=== PATIENT | female | born 2000 | race Two or more races ===

== ENCOUNTER 2024-11-20 12:29 | Inpatient (IN) | payer MEDICAID, SELFPAY ==
[2024-11-20] VITALS (14 sets, daily range): BP systolic 96–142; BP diastolic 55–88; PULSE 70–121; RESP 18–99; TEMP 36.6–36.7; O2SAT 97–99; BMI 40.8
[2024-11-20] MEDS: CITRIC ACID/SODIUM CITR 15 ML UDC (BICITRA) 30 ML PO (13:25)
[2024-11-20] MEDS: ceFAZolin/D5W 2 GM IV 2 GM/100 ML BAG IV (13:26)
[2024-11-20] MEDS: FAMOTIDINE INJ 10 MG/ML VIAL 2 ML 20 MG IV (13:26)
[2024-11-20 13:30] LABS: Basophils # (Auto) 0.0 Thou/mm3 (0.0-0.2); Basophils % (Auto) 0 % (0-2.5); Eosinophils # (Auto) 0.0 Thou/mm3 (0.0-0.5); Eosinophils % (Auto) 0 % (0-10); Hematocrit 30.2 % (36.0-46.0); Hemoglobin 9.9 g/dL (12.0-16.0); Immature Granulocytes Auto 0.03 Thou/mm3 (0.00-0.00); Lymphocytes # (Auto) 1.0 Thou/mm3 (1.0-4.8); Lymphocytes % (Auto) 14 % (10-50); Mean Corpuscular HGB Conc 32.8 g/dl (31.0-37.0); Mean Corpuscular Hemoglobin 24.6 pg (25.0-35.0); Mean Corpuscular Volume 75 fL (80-100); Monocytes # (Auto) 0.4 Thou/mm3 (0.0-0.8); Monocytes % (Auto) 6 % (0-12); Neutrophils # (Auto) 5.8 Thou/mm3 (1.8-7.7); Neutrophils % (Auto) 79 % (37-80); Nucleated Red Blood Cell # 0.00 Thou/mm3 (0.00-0.00); Nucleated Red Blood Cell % 0 /100 WBC (0); Platelet Count 216 Thou/mm3 (140-440); RDW Standard Deviation 39.0 fL (36.4-46.3); Red Blood Count 4.02 Miln/mm3 (4.00-5.20); White Blood Count 7.4 Thou/mm3 (3.6-11.0)
[2024-11-20] MEDS: RINGERS LACTATED 1000 ML 1,000 ML 100 ML IV (13:30)
[2024-11-20 14:12] LABS: Syphilis Nonreactive (Nonreactive)
--- NOTE | 2024-11-20 14:52 | PD.LDHP ---
Documentation for date of: 11/20/24 OB Labor/Induct. HPI History of Present Illness Chief complaint: Active labor, previous : 2 Para: 1 Term pregnancies: 1 pregnancies: 0 Living children: 1 History of Abortions: Spontaneous and Elective: 0 History of Vaginal deliveries: 0 History of sections: Yes History of : No KHAI: 12/01/24 Gestational Age (weeks): 38 Gestational Age (days): 1 History of present illness: Patient is a 23-year-old -0-0-1 at 38-3/7 weeks estimated gestational age dates consistent with first trimester ultrasound with all care uncomplicated with Dr Guerrier. She had a history of a x 1 in 10/08. She states her baby is 14 months old. She she presented in active labor to OB triage. She was 3 to 4 cm dilated on presentation please started lab we sent down labs start an IV and she rapidly progressed to 6 cm dilatation. She was consented for repeat low-transverse section in labor. She is not a candidate due to the fact that she just had a 14 months prior. Her EDC is 12/01/2024 History of Present Dating criteria: LMP confirmed by 1st trimester US Adequate Care: Yes Ultrasounds: normal mid trimester US Obstetrical complications: none Medical complications: none Labs Maternal Blood Type: A Pos Labs: Positive: Rubella Titre, Negative: RPR, Hepatitis B, HIV, Chlamydia and Gonorrhea and Unknown: Herpes Type 1, Herpes Type 2, Group Beta Strep and Covid-19 Review of Systems Review of Systems Narrative Review of Systems: Patient reports painful uterine contractions. Good movement. No loss of fluids. No vaginal bleeding. Past Medical History Surgical History SURGICAL: Positive Section Meds Home Medications and Allergies Home Medications ?Medication ?Instructions ?Recorded ?Confirmed ?Type vit no.95-ferrous 1 tab PO QDAY 09/25/23 10/02/23 History fumarate 28 mg-folic acid 800 mcg tablet () Allergies Allergy/AdvReac Type Severity Reaction Status Date / Time No Known Allergies Allergy Verified 10/02/23 07:04 OB Exam Physical Exam Vital signs: Temp Pulse Resp BP 98.1 F 121 H 18 142/88 H 11/20/24 14:23 11/20/24 14:23 11/20/24 14:23 11/20/24 14:23 Narrative: Patient is breathing through her contractions and uncomfortable. She is answering questions appropriately. Abdomen is soft, her fundus is firm and approximately 40 weeks. EFW 8 pounds. Routine Abdominal Exam Abdominal: Present soft and surgical scars (Pfannenstiel scar well-healed) Detailed Labor and Delivery Exam Dilation (cm): 3-4 Effacement (%): 80 Cervix position: mid station: -1 Consistency: soft Presentation: Vertex Membranes: intact monitor accelerations: 15x15 monitor decelerations: None grooming assistant variability: Moderate (11-25) Contraction frequency (min): Every 3 to 4 minutes Tachysystole: No Contraction intensity: Strong OB Results Labs 11/20/24 13:00 Labs: Short CBC 11/20/24 Range/Units 13:00 WBC 7.4 (3.6-11.0) Thou/mm3 Hgb 9.9 L (12.0-16.0) g/dL Hct 30.2 L (36.0-46.0) % Plt Count 216 (140-440) Thou/mm3 OB Assessment & Plan Assessment and Plan (1) Supervision of high risk in third trimester: Status: Acute (2) Previous section: Status: Acute Assessment and plan: The patient is in active labor and has progressed from 3 to 4 to 6 cm in triage. She is consented for a repeat low-transverse section. The risks of the procedure were discussed with the patient including the risk of bleeding, infection, blood transfusion, damage to bowel, bladder, blood vessels and other organs ,prolonged hospital stay and further surgery should any of the above occur. All questions were answered and all consents were signed. We will proceed with repeat low-transverse section in labor at this time.
--- NOTE | 2024-11-20 15:56 | PD.GYNPROC ---
Operative Note - DYE WORKER Procedure Date of procedure: 11/20/24 Procedure Performed: Repeat low-transverse section Indication: The patient is a 23-year-old -0-0-1 at 38-5/7 weeks with all care uncomplicated with Dr Guerrier. She has a history of a x one 14 months ago. The patient presented to triage reporting painful uterine contractions. She was 3 to 4 cm dilated. Within an hour of admission to triage, she was already 6 cm dilated. She was consented for repeat low-transverse section. EDC 12/01/2024 Pre-Op diagnosis: 1. IUP at 38-5/7 weeks 2. Active labor, 6 cm dilated 3. Previous 4. Maternal BMI of 41 Post-Op diagnosis: Same Anesthesia type: Spinal Procedure description: After obtaining informed consent, the patient was brought back to the operating room and spinal anesthesia was administered. She was then prepped and draped in the dorsal supine position with a leftward tilt in a normal sterile fashion. A Christiansen catheter was inserted into the patient's bladder. The patient was given 2 g of Ancef by anesthesia. A Pfannenstiel skin incision was made through the patient's prior scar and the prior scar removed. The incision was carried down to the underlying fascia. The fascia was incised in the midline and the fascial incision extended laterally using Hendricks scissors. The superior aspect of the fascia was grasped with Jerson clamps, and the underlying rectus muscles were dissected off using blunt and sharp dissection. This was repeated in the inferior aspect the incision. The rectus muscles were in the midline, and in the peritoneum entered sharply with a scalpel. This was extended superiorly and inferiorly with good visualization of the bladder using blunt dissection with the surgeon's fingers. The bladder blade was inserted and the uterus was incised in a low transverse fashion using a scalpel above the bladder reflection. The uterine incision was extended laterally using blunt dissection with the surgeon's fingers. The bag of escalera were ruptured, and clear fluid was noted. The bladder blade was removed, and the was delivered atraumatically. The cord was clamped and cut. The was handed off to the waiting pediatric staff. Cord blood was sent and cord gases were held. The placenta was then manually removed, and handed off the operating field. The uterus was exteriorized and cleared of all clots and debris. The uterine incision was repaired with 0 Monocryl in a running locked fashion. A couple of extra sutures were placed in her right lower quadrant for an extension. Excellent hemostasis was noted. The uterus was returned to the patient's abdominal cavity and copious irrigation carried out with warm normal saline. The uterine incision was reexamined several times and noted to be hemostatic. Some mild oozing was noted and Abdullahi hemostatic powder was called for. Excellent hemostasis was noted. After ensuring the rectus muscles were hemostatic these were reapproximated in a running fashion using 0 Monocryl. The fascia was closed with 0 Vicryl in a running fashion. The subcutaneous tissues were irrigated and found to hemostatic. These were reapproximated using running suture of 3-0 plain. The skin was closed with a subcuticular suture of 4-0 Monocryl. Of note the patient had a large skin tag approximately 1 x 1 cm in her left lower quadrant below her incision. She desired this to be removed and did verbally consent for this. This large skin tag was picked up with pickups and excised using a scalpel. The excision site was closed using one interrupted suture of 4-0 Monocryl. The patient tolerated the procedure well, sponge, lap, needle, and instrument counts were correct x 2. The patient went to the recovery area awake and in stable condition. Of note the baby was with mom in recovery in stable condition. Fluids: crystalloid Fluid amount (mL): 1,400 Urine output (mL): 75 Specimen: none Implants: None Estimated blood loss (ml): 600 Findings: Liveborn female in the OA presentation with no nuchal cord or meconium. Apgars 9 and 9. Weight was 7 pounds 13 ounces. The placenta was complete, spontaneous, and grossly normal. Tubes, uterus and ovaries appeared grossly normal. Of note there was very little scar tissue present in the patient's abdomen. Complications: none Surgical staff Operation Date: 11/20/24 13:30 Case Staff PRINCIPAL EXAMINER: Elias العراقي RNfast food services manager: Dorie Cid Diagnosis Discharge Diagnosis (1) Previous section: Status: Acute Problem details: For repeat low-transverse section (2) Supervision of high risk in third trimester: Status: Acute (3) Morbid obesity with BMI of 40.0-44.9, adult: Status: Acute Problem details: Consider Lovenox Problem List Completed Was Problem List Reviewed/Reconciled?: Yes
--- NOTE | 2024-11-20 15:59 | OBDSUM_ITS ---
Data (Campos) Data Hx Section: Yes Maternal Blood Type: A Pos Rubella Titre: Positive RPR: Non-reactive Labs: Negative: RPR, Hepatitis B, HIV, Chlamydia, Gonorrhea and Group Beta Strep and Unknown: Herpes Type 1 and Herpes Type 2 : 2 Term: 1 : 0 Livin Abortions: Spontaneous & Theraputic: 0 Delivery Data (Campos) Labor Data Initiation of labor: Spontaneous Induction/Augmentation Agent: None ROM date: 11/20/24 ROM time: 14:03 Amniotic membrane rupture type: Artificial Amniotic fluid description: Clear Delivery Data EDC: 12/01/24 EDC calculated by:: LMP/early US confirmation Date of arrival to unit: 11/20/24 Onset of labor date: 11/20/24 Onset of labor time: 13:30 Complete dilation date: 11/20/24 Complete dilation time: 14:03 delivery date: 11/20/24 delivery time: 14:04 Gestational age (weeks): 38 Gestational age (days): 3 Placenta delivery date: 11/20/24 Placenta delivery time: 14:05 Stage 1 total time: Labor - Stage 1 Duration 33 minutes Delivered by: Poornima Juarez ([facility]) Delivery nurse: Kapil Allan nurse: Mariama Krishnamurthy Control Technician at delivery: No Support person(s) at delivery: Mother of pt Other staff at delivery: Alia Alvarado D. Elton DIAMOND GRADER, PATRICIO LLAMASA, ARREA1, SMOTC1 Delivery Method Delivery method: Low Transverse Presentation: Vertex position: OA Anesthesia Type Anesthesia Type: Spinal Anesthesia type: Spinal Delivery Room Medications Delivery room medications given: TXA Delivery room medications: Pitocin 20 u IV Placenta Placenta delivery description: Spontaneous Cord blood sent to lab: Yes cord blood collection: Cord Blood Type Episiotomy Episiotomy description: None EBL Estimated blood loss (ml): 600 Umbilical Cord cord description: 3 Vessels Additional Procedures Please see op report for further details. Complications Complications: None [place] Data (Campos) [place] Data order: 1 Mine[place]'s gender: Female weight (gms): 3540 g Weight (pounds): 7 lbs and 12.9 ozs 1 minute: 9 5 minutes: 9 Additional Comments Additional comments: Please see op report for further details
[2024-11-20] MEDS: KETOROLAC INJ 30 MG/ML VIAL IVP (17:13)
[2024-11-20] MEDS: OXYTOCIN in NS 20 units 20 UNIT/1,000 ML BAG 125 UNIT IV (20:32)
[2024-11-20] MEDS: IBUPROFEN TAB 400 MG TABLET 800 MG PO (23:24)
[2024-11-21] VITALS (16 sets, daily range): BP systolic 106–127; BP diastolic 69–90; PULSE 100–142; RESP 22–50; TEMP 36.4–37.8; O2SAT 93–97
[2024-11-21] MEDS: RINGERS LACTATED 1000 ML 1,000 ML 999 ML IV (00:45)
--- NOTE | 2024-11-21 00:48 | XR_ITS ---
Examination: AP chest single view Technique AP portable semiupright chest single view Date and time: November 21, 2024, 0120 hours Comparison September 11, 2012 INDICATIONS: Tachypnea and tachycardia today. FINDINGS: Reduced inspiratory effort which accentuates the cardiac contour. No aspiration pneumonia, no pulmonary edema IMPRESSION: Poor inspiratory effort chest x-ray
--- NOTE | 2024-11-21 01:16 | ESPR_ITS ---
Subjective Subjective Interval history: Patient is a 23-year-old G2 now P2002 status post primary 11/20/2024 at approximately 1400. I was called to bedside for low urine output. Patient is also tachycardic with pulse of 115. She is reporting bilateral shoulder pain. Her predelivery hemoglobin was 9.9. Her blood pressure is stable at 112/70. Pulse is 81. This point I ordered a bolus of 1 L LR for decreased urine output, a second IV line to be placed, 2 units PRBC on hold and a stat CBC. I also ordered a stat chest x-ray. Patient does not report chest pain or chest pain. At bedside abdomen is soft fundus is firm her lochia is moderate. Her incision is dressed and dry. Exam Vital Signs Temp Pulse Resp BP Pulse Ox O2 Del Method 97.9 F 81 20 112/70 97 Room Air 11/20/24 20:41 11/20/24 20:41 11/20/24 20:41 11/20/24 20:41 11/20/24 20:41 11/20/24 20:41 Narrative Exam Current pulse 114 current blood pressure 112/70 current pulse ox 96% on room air Objective Labs 11/20/24 13:00 Labs: Laboratory Results - last 24 hr 11/20/24 13:00 WBC 7.4 RBC 4.02 Hgb 9.9 L Hct 30.2 L MCV 75 L MCH 24.6 L MCHC 32.8 RDW Std Deviation 39.0 Plt Count 216 Neut % (Auto) 79 Lymph % (Auto) 14 [place] % (Auto) 6 Eos % (Auto) 0 Baso % (Auto) 0 Neut # (Auto) 5.8 Lymph # (Auto) 1.0 [place] # (Auto) 0.4 Eos # (Auto) 0.0 Baso # (Auto) 0.0 Immature Gran # (Auto) 0.03 H Absolute Nucleated RBC 0.00 Immature Gran % 0 Nucleated RBC % 0 Syphilis Serology Nonreactive Blood Type A Positive Antibody Screen NEGATIVE Blood Bank Wristband ID Yes Assessment & Plan Problem List (1) Previous section: Problem details: For repeat low-transverse section Status: Acute (2) Supervision of high risk in third trimester: Status: Acute (3) Morbid obesity with BMI of 40.0-44.9, adult: Problem details: Consider Lovenox Status: Acute Assessment Comment Assessment comment: Patient with decreased urine output elevated pulse. EBL at surgery approximately 600 cc. Stat CBC second IV line chest x-ray and fluid bolus now. Time Spent With Patient Time: Total time spent is greater than 50% in coordination of care (as documented) at patient's floor/unit and/or counseling patient: Time with patient: less than 15 minutes
[2024-11-21 01:19] LABS: Basophils # (Auto) 0.0 Thou/mm3 (0.0-0.2); Basophils % (Auto) 0 % (0-2.5); Eosinophils # (Auto) 0.0 Thou/mm3 (0.0-0.5); Eosinophils % (Auto) 0 % (0-10); Hematocrit 27.4 % (36.0-46.0); Hemoglobin 9.0 g/dL (12.0-16.0); Immature Granulocytes Auto 0.02 Thou/mm3 (0.00-0.00); Lymphocytes # (Auto) 0.4 Thou/mm3 (1.0-4.8); Lymphocytes % (Auto) 6 % (10-50); Mean Corpuscular HGB Conc 32.8 g/dl (31.0-37.0); Mean Corpuscular Hemoglobin 24.8 pg (25.0-35.0); Mean Corpuscular Volume 76 fL (80-100); Monocytes # (Auto) 0.3 Thou/mm3 (0.0-0.8); Monocytes % (Auto) 5 % (0-12); Neutrophils # (Auto) 6.8 Thou/mm3 (1.8-7.7); Neutrophils % (Auto) 89 % (37-80); Nucleated Red Blood Cell # 0.00 Thou/mm3 (0.00-0.00); Nucleated Red Blood Cell % 0 /100 WBC (0); Platelet Count 199 Thou/mm3 (140-440); RDW Standard Deviation 39.7 fL (36.4-46.3); Red Blood Count 3.63 Miln/mm3 (4.00-5.20); White Blood Count 7.6 Thou/mm3 (3.6-11.0)
--- NOTE | 2024-11-21 01:54 | PD.LDPPPRG ---
Subjective Subjective Interval history: Patient is pale. He hemoglobin 3 was 9.9. Post it is 9. Her pulse is 115. At this point I recommended blood transfusion of 2 units packed red blood cells and patient agrees. Urine output is still poor after 750 cc of LR. She states her shoulder pain is better. Exam Vital Signs Temp Pulse Resp BP Pulse Ox O2 Del Method 97.5 F 103 H 25 H 114/74 97 Room Air 11/21/24 00:00 11/21/24 00:25 11/21/24 00:25 11/21/24 00:00 11/21/24 00:25 11/21/24 00:25 Narrative Exam Patient is pale but alert and oriented answers questions appropriately. Fundus is firm. On pressing on the fundus it is at her umbilicus and she has minimal lochia. SCD boots are in place. No edema or erythema. Objective Labs 11/21/24 01:10 Labs: Laboratory Results - last 24 hr 11/20/24 11/21/24 13:00 01:10 WBC 7.4 7.6 RBC 4.02 3.63 L Hgb 9.9 L 9.0 L Hct 30.2 L 27.4 L MCV 75 L 76 L MCH 24.6 L 24.8 L MCHC 32.8 32.8 RDW Std Deviation 39.0 39.7 Plt Count 216 199 Neut % (Auto) 79 89 H Lymph % (Auto) 14 6 L [place] % (Auto) 6 5 Eos % (Auto) 0 0 Baso % (Auto) 0 0 Neut # (Auto) 5.8 6.8 Lymph # (Auto) 1.0 0.4 L [place] # (Auto) 0.4 0.3 Eos # (Auto) 0.0 0.0 Baso # (Auto) 0.0 0.0 Immature Gran # (Auto) 0.03 H 0.02 H Absolute Nucleated RBC 0.00 0.00 Immature Gran % 0 0 Nucleated RBC % 0 0 Syphilis Serology Nonreactive Blood Type A Positive Antibody Screen NEGATIVE Blood Bank Wristband ID Yes Assessment & Plan Problem List (1) Previous section: Problem details: For repeat low-transverse section Status: Acute (2) Supervision of high risk in third trimester: Status: Acute (3) Morbid obesity with BMI of 40.0-44.9, adult: Problem details: Consider Lovenox Status: Acute Plan Comment Plan Comment: Patient appears pale with poor urine output and elevated pulse. At this time we will go ahead and transfuse 2 units packed red blood cells. Patient consented for the transfusion. Time Spent With Patient Time: Total time spent is greater than 50% in coordination of care (as documented) at patient's floor/unit and/or counseling patient: Time with patient: less than 15 minutes
--- NOTE | 2024-11-21 04:01 | EKG_ITS ---
[facility] Test Date: 2024-11-21 Pat Name: KAROL PRYOR [facility] Gender[facility] Slip Sheeter: SOFYA : 2000 Requested By: Poornima Juarez ([facility]) Khadar Order Number: [id number] Reading MD: Poornima Juarez ([facility]) M Measurements Intervals [place] Rate: 130 P: 54 [place]: 160 QRS: 1 QRSD: 85 T: 21 QT: 292 QTc: 430 Interpretive Statements SINUS TACHYCARDIA INDETERMINATE AXIS ABNORMAL RHYTHM ECG No previous ECG available for comparison /store/S0/[id number].pdf
[2024-11-21] MEDS: ACETAMINOPHEN 325 MG TABLET 650 MG PO (04:19)
[2024-11-21] MEDS: SIMETHICONE 80 MG CHEW PO (04:20)
[2024-11-21] MEDS: RINGERS LACTATED 1000 ML 1,000 ML 100 ML IV (05:03)
[2024-11-21 05:20] LABS: Collection Type, Urine Catheter; Squamous Epithelial Cell,Urine 0 /hpf (0-5)
[2024-11-21 05:21] LABS: Lactate (Lactic Acid) 1.5 mMol/L (0.4-2.0)
[2024-11-21 05:23] LABS: Basophils # (Auto) 0.0 Thou/mm3 (0.0-0.2); Basophils % (Auto) 0 % (0-2.5); Eosinophils # (Auto) 0.0 Thou/mm3 (0.0-0.5); Eosinophils % (Auto) 0 % (0-10); Hematocrit 27.6 % (36.0-46.0); Hemoglobin 9.1 g/dL (12.0-16.0); Immature Granulocytes Auto 0.02 Thou/mm3 (0.00-0.00); Lymphocytes # (Auto) 0.4 Thou/mm3 (1.0-4.8); Lymphocytes % (Auto) 4 % (10-50); Mean Corpuscular HGB Conc 33.0 g/dl (31.0-37.0); Mean Corpuscular Hemoglobin 25.2 pg (25.0-35.0); Mean Corpuscular Volume 77 fL (80-100); Monocytes # (Auto) 0.3 Thou/mm3 (0.0-0.8); Monocytes % (Auto) 3 % (0-12); Neutrophils # (Auto) 8.4 Thou/mm3 (1.8-7.7); Neutrophils % (Auto) 92 % (37-80); Nucleated Red Blood Cell # 0.00 Thou/mm3 (0.00-0.00); Nucleated Red Blood Cell % 0 /100 WBC (0); Platelet Count 172 Thou/mm3 (140-440); RDW Standard Deviation 41.5 fL (36.4-46.3); Red Blood Count 3.61 Miln/mm3 (4.00-5.20); White Blood Count 9.1 Thou/mm3 (3.6-11.0)
[2024-11-21 05:27] LABS: Amorphous Crystals,Urine Present (Absent); Bacteria,Urine 1+; Bilirubin,Urine Negative (Negative); Blood,Urine 2+ (Negative); Clarity,Urine Turbid (Clear/Hazy); Color,Urine Orange (Lt Yel-Yel); Glucose, Urine Trace (Negative); Ketones,Urine 2+ (Negative); Leukocyte Esterase,Urine Negative (Negative); Nitrite,Urine Negative (Negative); PH,Urine 6.0 (5.0-7.0); Protein,Urine 2+ (Neg - Trace); RBC,Urine 100 /hpf (0-3); Specific Gravity,Urine 1.035 (1.001-1.035); Urobilinogen,Urine 3.0 mg/dL (0.0-1.0); WBC,Urine 53 /hpf (0-5)
--- NOTE | 2024-11-21 06:39 | PC.NURSE ---
0350 11/21/24 Maternal sepsis was called because of pt inadequate urine output, RR of 27, HR of 120 (for more than 15 min), Temp of 99.8
--- NOTE | 2024-11-21 07:25 | ESPR_ITS ---
RE: KAROL PRYOR : 2000 DATE OF SERVICE: 11/21/2024 Postop day #1. The patient denies any problem or complaint. She denies any excessive vaginal bleeding. She denies any dizziness or lightheadedness. She denies any chest pain, palpitations, or lower extremity pain. OBJECTIVE: Vital Signs: Blood pressure 107/69, heart rate 120, respirations 29, temperature is 99.8. Lungs: Clear to auscultation bilaterally. Heart: Tachycardic, but regular rhythm. Abdomen: Nondistended. Dressing dry and intact. Fundus is firm. Extremities: Nontender. ASSESSMENT: Postoperative day #1, status post delivery, Maternal Sepsis r/o PE and internal bleeding. PLAN: IV antibiotics, transfuse 2 u pRBC, Type and Cross for 2 more upRBC and 2 u FFP. Sepsis Protocol: CT Angiogram Chest, Abd and Pelvis. Repeat Sepsis Labs. DT: 06:45:59 TT: 07:23:00 Ref: [id number] - TID: [id number] MTDD
[2024-11-21] MEDS: Milk Of Magnesia Susp 30 ML UDC PO (07:55)
[2024-11-21] MEDS: DOCUSATE SOD 100 MG CAPSULE PO (07:55)
[2024-11-21] MEDS: IBUPROFEN TAB 400 MG TABLET 800 MG PO ×2 (07:55→16:35)
--- NOTE | 2024-11-21 08:38 | XR_ITS ---
Examination: CT abdomen with intravenous contrast CT pelvis with intravenous contrast 2-D coronal reconstructions 2-D sagittal reconstructions Date and time of exam:November 21, 2024 1106 hours INDICATIONS: Shortness of breath chest pain postoperative bleeding today. CTDI: vol (mGy) 14.5 DLP: (mGycm) 839 Technique: Multiple axial sections of the abdomen and pelvis have been obtained. 64 slice high-resolution scanner used. 3 mm axial sections have been obtained, post intravenous injection 100 cc Isovue-370 2-D sagittal, coronal reconstructions obtained. Low dose protocols were performed. One or more of the following dose reduction techniques were used; automated exposure control, adjustment of the mA and/or KV according to patient size, use of iterative reconstruction technique. Findings: Significant bibasilar pneumonia Pneumoperitoneum Moderate splenomegaly No gallstones No hydronephrosis No pancreatic mass Numerous fluid distended small bowel loops Absent appendix enlarged uterus with endometrial stripe 23 mm Mild free fluid in the pelvis Prominent vasculature along the lateral margins of the pelvis No organized hematoma Postop change in the anterior pelvic wall Blood clot in the lower uterine segment Urinary bladder contracted around a Christiansen catheter IMPRESSION: Significant bibasilar pneumonia Pneumoperitoneum Moderate splenomegaly Numerous fluid distended small bowel loops, clinical correlation advised Enlarged uterus with endometrial stripe 23 mm Mild free fluid in the pelvis Blood clots in the lower uterine segment, consider pelvic sonography follow-up
--- NOTE | 2024-11-21 08:38 | XR_ITS ---
Examination: CTA chest with intravenous contrast 2-D reconstructions 3-D reconstructions, vascular Date and time of exam: November 21, 2024 1106 hours INDICATIONS: Onset chest pain shortness of breath today CTDI: vol (mGy) 24.52 DLP: (mGycm) 414 Technique: Multiple axial sections of the thorax have been obtained. 3 mm slice thickness, from below the hemidiaphragms to above the apices of the lungs. Mediastinal and lung density settings have been obtained. 2-D sagittal and coronal reconstructions. 3-D angiographic renderings, 3-D volume renderings, 3D post processing, vascular maximum intensity projections obtained. Contrast administered is 100 cc Isovue-370 Low dose protocols, automated exposure control, adjustment MA KV according to patient size FINDINGS: No thoracic aortic aneurysm dilatation or dissection Pulmonary artery opacification is not optimal No gross pulmonary artery filling defects Moderate vascular congestion Significant bibasilar pneumonia No visualized liver or splenic lesion Splenomegaly AP dimension 15 cm No gallstones Multiple fluid distended loops of small bowel, please see the CT abdomen pelvis report. Impression: Pulmonary artery opacification is not optimum, no pulmonary artery emboli are noted Significant bibasilar pneumonia, consider aspiration pneumonia
[2024-11-21 09:01] LABS: Lactate (Lactic Acid) 2.5 mMol/L (0.4-2.0)
[2024-11-21 09:09] LABS: Basophils # (Auto) 0.0 Thou/mm3 (0.0-0.2); Basophils % (Auto) 0 % (0-2.5); Eosinophils # (Auto) 0.0 Thou/mm3 (0.0-0.5); Eosinophils % (Auto) 0 % (0-10); Hematocrit 27.4 % (36.0-46.0); Hemoglobin 9.1 g/dL (12.0-16.0); Immature Granulocytes Auto 0.03 Thou/mm3 (0.00-0.00); Lymphocytes # (Auto) 0.4 Thou/mm3 (1.0-4.8); Lymphocytes % (Auto) 3 % (10-50); Mean Corpuscular HGB Conc 33.2 g/dl (31.0-37.0); Mean Corpuscular Hemoglobin 25.6 pg (25.0-35.0); Mean Corpuscular Volume 77 fL (80-100); Monocytes # (Auto) 0.4 Thou/mm3 (0.0-0.8); Monocytes % (Auto) 3 % (0-12); Neutrophils # (Auto) 9.8 Thou/mm3 (1.8-7.7); Neutrophils % (Auto) 93 % (37-80); Nucleated Red Blood Cell # 0.00 Thou/mm3 (0.00-0.00); Nucleated Red Blood Cell % 0 /100 WBC (0); Platelet Count 181 Thou/mm3 (140-440); RDW Standard Deviation 43.8 fL (36.4-46.3); Red Blood Count 3.55 Miln/mm3 (4.00-5.20); White Blood Count 10.6 Thou/mm3 (3.6-11.0)
[2024-11-21 09:21] LABS: INR 1.0 (0.9-1.3); Partial Thromboplastin Time 29.3 Seconds (22.0-36.0); Prothrombin Time 11.4 Seconds (9.0-12.2)
[2024-11-21 09:30] LABS: Alanine Aminotransferase < 7 U/L (10-49); Albumin, Serum 2.9 gm/dL (3.5-5.0); Albumin/Globulin Ratio 1.6 (1.2-2.2); Alkaline Phosphatase 83 U/L (46-116); Anion Gap 13 (7-16); Aspartate Amino Transferase 17 U/L (0-34); BUN/Creatinine Ratio 16 Ratio (12-20); Bilirubin,Total 1.3 mg/dL (0.3-1.2); Blood Urea Nitrogen 8 mg/dL (9-23); Calcium 8.2 mg/dL (8.3-10.6); Calcium (Corrected) 9.1 mg/dL (8.5-10.1); Carbon Dioxide 18.4 mMol/L (20.0-31.0); Chloride 108 mMol/L (98-107); Creatinine (Component) 0.5 mg/dL (0.6-1.3); Estimated Creatinine Clearance 194.8 mL/min (>60); Globulin 1.8 gm/dL (2.3-3.5); Glucose 75 mg/dL (74-106); Magnesium 1.3 mg/dL (1.6-2.6); Osmolality,Calculated 274 (275-295); Phosphorous 4.5 mg/dL (2.4-5.1); Potassium 3.8 mMol/L (3.4-5.1); Procalcitonin 0.88 ng/ml (0.0-0.49); Sodium 139 mMol/L (136-145); Total Protein 4.7 gm/dL (5.7-8.2); eGFR > 60 See Note
[2024-11-21] MEDS: PIPER/TAZO 3.375 GM PREMIX 3.375 GM/50 ML BAG IV (09:58)
[2024-11-21 11:58] LABS: Reflex Lactate? Y
[2024-11-21] MEDS: HYDROcodone/APAP 5/325 TABLET 1 TAB PO (12:51)
[2024-11-21 13:01] LABS: Lactic Acid, 3 HR 1.5 mMol/L (0.4-2.0)
--- NOTE | 2024-11-21 15:57 | PC.NURSE ---
1545 Hospitalist Obod in room to assess patient, stated he will start her on iv antibiotics. Gave orders to DC IV protonix and iv fluids.
--- NOTE | 2024-11-21 16:04 | ESCONSULT_ITS ---
<Statement entered by Pankaj Rosales MD - 11/26/24 11:44> I reviewed above note and agree with findings and plans. I have also personally examined the patient with medicine team and went over assessment and plan with medical team including internal combustion engine subassembler and resident physician. HPI Data of Consult Requesting Physician: Alfred Guerrier MD Admitting Provider: Poornima Juarez MD ([facility]) Attending Provider: Alfred Guerrier MD Primary Care Provider: Physician No Primary/Family Consult Narrative History of present illness: The patient is a 23-year-old female with no pertinent past medical history currently seen in obstetric floor, patient had a 2 days ago, reportedly had an aspiration event during anesthesia, patient reported having fever and chills, pleuritic chest pain worse with breathing, which started yesterday and has progressively worsened today. Sepsis alert was called yesterday, met sepsis criteria, for tachypnea and tachycardia. Started on nasal cannula oxygen for hypoxia, patient received 1 L IV fluid bolus, given IV Zosyn, blood cultures were obtained. Patient was started on maintenance IV fluids. there was also concern for internal hemorrhage postsurgery, CT abdomen was obtained which shows pneumoperitoneum, in setting of recent surgery. Patient was also noted to have anemia, 3 PRBCs were ordered in total, as hemoglobin did not improve after first PRBC transfusion last night. Of note, patient has been at the bedside reported that they have 1-year-old son had pneumonia 1 day prior to coming to the hospital. Patient denied upper abdominal discomfort, vomiting or diarrhea, endorsed nausea, headache, and pleuritic chest pain. Past medical history: No pertinent past medical history Home medications: Patient reported taking vitamins and iron supplements Past surgical history: C-sections x2 Family history: Positive family history of diabetes mellitus Allergies: NKDA Social history: Denies smoking and drinking or drug abuse. cc:: cc: Alfred Guerrier MD Review of Systems Review of Systems Narrative Review of Systems: General: Positive fevers or chills HEENT: Denies congestion or sore throat Heart: Positive chest pain and palpitations Lungs: Positive shortness of breath and cough Abdomen: Denies diarrhea, nausea, vomiting, constipation, bright red blood per rectum or melena Genitourinary: Denies frequency, urgency, dysuria, or hematuria Musculoskeletal: Denies joint pain, denies muscular pain Neurology: Denies any numbness, tingling Review of systems otherwise negative except what is mentioned above. Past Medical History Past Medical History NEUROLOGIC: Negative Neurological Disorders or Seizures CARDIAC: Negative Cardiac Disorders or Congestive Heart Failure RESPIRATORY: Negative Chronic Obstructive Pulmonary Disease (COPD) or Asthma GASTROINTESTINAL: Negative Gastrointestinal Disorders or Hepatitis GENITOURINARY: Negative Genitourinary Disorders or Renal Disease REPRODUCTIVE: Positive Syphilis (treated) MUSCULOSKELETAL: Negative Musculoskeletal Disorders ENDOCRINE: Positive Endocrine Disorders; Negative Diabetes Mellitus Type 1 or Diabetes Mellitus Type 2 HEMATOLOGIC: Negative Blood Disorders or Sickle Cell Disease OTHER HISTORY: Negative Hospitalization, Autoimmune Disease, Down Syndrome, Developmental Delay, Shingles, Falls, Blood Transfusions, Blood Transfusion Reaction, Anesthesia Reactions, MRSA, VRSA, Vancomycin-Resistant Enterococci, Human Immunodeficiency Virus (HIV), Chicken Pox, Measles, Mumps, Rubella (Malagasy Measles), Pertussis, Clostridium Difficile or Cancer Family History FAMILY HISTORY: Positive Family Endocrine Disorders (PATERNAL GRANDMOTHER TYPE 2D); Negative Family Psychiatric Problems, Family Respiratory Disorders, Family Cardiac Disorders, Family Gastrointestinal Problems, Family Cancer, Family Surgery or Family Anesthesia Reaction Surgical History SURGICAL: Positive Abdominal Surgery and Section Social History SMOKING STATUS: Never smoker SECOND HAND EXPOSURE: No Exam Vital Signs Temp Pulse Resp BP Pulse Ox O2 Del Method 98.8 F 129 H 42 H 127/90 H 94 L Room Air 11/21/24 14:06 11/21/24 14:06 11/21/24 14:06 11/21/24 14:11/21/24 14:11/21/24 11:40 Narrative Exam General: AOx3, cooperative, mildly distressed, due to pain and shortness of breath, saturating well on 2 L NC O2, Skin: Intact, no cyanosis or edema noted. HEENT: Atraumatic/normocephalic, CECILIA, neck supple Heart: RRR, S1 and S2 without clicks or murmurs, sinus tachycardia Lungs: Mild basilar rhonchi, respiratory rate in the 40s Abdomen: Soft, mildy distended and tender post surgery. Bowel sounds present . Vascular: Peripheral pulses palpable Neuro: No focal neurological deficits noted. Results Labs 11/23/24 08:35 11/23/24 08:35 Labs: Short CBC 11/21/24 11/21/24 11/21/24 Range/Units 01:10 05:00 08:53 WBC 7.6 9.1 10.6 (3.6-11.0) Thou/mm3 Hgb 9.0 L 9.1 L 9.1 L (12.0-16.0) g/dL Hct 27.4 L 27.6 L 27.4 L (36.0-46.0) % Plt Count 199 172 181 (140-440) Thou/mm3 BMP 11/21/24 08:53 Sodium 139 Potassium 3.8 Chloride 108 H Carbon Dioxide 18.4 L BUN 8 L Creatinine 0.5 L Glucose 75 Calcium 8.2 L Liver Function 11/21/24 Range/Units 08:53 Total Bilirubin 1.3 H (0.3-1.2) mg/dL AST 17 (0-34) U/L ALT < 7 L (10-49) U/L Alkaline Phosphatase 83 (46-116) U/L Albumin 2.9 L (3.5-5.0) gm/dL Urine 11/21/24 Range/Units 04:10 Urine Color [place] A (Lt Yel-Yel) Urine Clarity Turbid A (Clear/Hazy) Urine pH 6.0 (5.0-7.0) Ur Specific [place] 1.035 (1.001-1.035) Urine Protein 2+ A (Neg - Trace) Urine Glucose (UA) Trace (Negative) Quality Measures Quality Measures VTE prophylaxis Medications Home Medications and Allergies Home Medications ?Medication ?Instructions ?Recorded ?Confirmed ?Type vit no.95-ferrous 1 tab PO QDAY 09/25/23 07/0 11/09 History fumarate 28 mg-folic acid 800 mcg tablet () Allergies Allergy/AdvReac Type Severity Reaction Status Date / Time No Known Allergies Allergy Verified 11/21/24 04:05 Visit Medications Acetaminophen (Acetaminophen 325 Mg Tablet) 325 mg PO Q4HR PRN PRN Reason: Patient rated pain 1 to 2 Stop: 12/20/24 17:27 Acetaminophen (Acetaminophen 325 Mg Tablet) 650 mg PO Q6HR PRN PRN Reason: Patient rated pain of 3 Stop: 12/20/24 17:27 Last Admin: 11/21/24 04:19 Dose: 650 mg Hydrocodone Bitart/Acetaminophen (Hydrocodone/Apap 5/325 Tablet) 1 tab PO Q4HR PRN PRN Reason: Patient rated pain 7 to 8 Stop: 11/25/24 17:27 Last Admin: 11/21/24 12:51 Dose: 1 tab Hydrocodone Bitart/Acetaminophen (Hydrocodone/Apap 5/325 Tablet) 2 tab PO Q6HR PRN PRN Reason: Patient rated pain 9 to 10 Stop: 11/25/24 17:27 Carboprost Tromethamine (Carboprost Trometh Inj 250 Mcg/Ml Vial) 250 mcg IM X1 PRN PRN Reason: BLEEDING Diphtheria/Tetanus/Acell Pertussis (Diphth,Pertuss(Acell),Tet Vac 0.5 Ml Syr- Adult) 0.5 ml IMi X1 PRN PRN Reason: SEE COMMENTS Docusate Sodium (Docusate Sod 100 Mg Capsule) 100 mg PO QDAY [facility] Stop: 12/21/24 08:59 Last Admin: 11/21/24 07:55 Dose: 100 mg Enoxaparin Sodium (Enoxaparin Sod Inj 40 Mg/0.4 Ml Syringe) 40 mg SC QDAY MANUEL Stop: 12/05/24 08:59 Last Admin: 11/21/24 09:00 Dose: Not Given Tranexamic Acid (Tranexamic Acid Ivpb) 1,000 mg in 100 mls @ 200 mls/hr IV PRNMRX1 PRN PRN Reason: BLEEDING Lactated Ringer's (Lactated Ringers) 1,000 mls @ 100 mls/hr IV .Q10H MANUEL Stop: 12/21/24 09:29 Last Admin: 11/21/24 05:03 Dose: 100 mls/hr Ibuprofen (Ibuprofen Tab 400 Mg Tablet) 800 mg PO Q8HR PRN PRN Reason: PAIN SCALE 4-6 (Moderate Stop: 12/20/24 17:27 Last Admin: 11/21/24 07:55 Dose: 800 mg Magnesium Hydroxide (Milk Of Magnesia Susp 30 Ml Udc) 30 ml PO PRNMRX1 PRN PRN Reason: CONSTIPATION Stop: 12/20/24 17:27 Last Admin: 11/21/24 07:55 Dose: 30 ml Measles/Mumps/Rubella Vaccine Live (Measles, Mumps & Rubella Vacc 0.5 Ml Vial) 0.5 ml SCi X1 PRN PRN Reason: if non-immune or equivocal Methylergonovine Maleate (Methylergonovine Inj 0.2 Mg/Ml Vial) 0.2 mg IM X1 PRN PRN Reason: BLEEDING Methylergonovine Maleate (Methylergonovine Inj 0.2 Mg/Ml Vial) 0.2 mg IM Q6HR PRN PRN Reason: Excessive bleeding Stop: 11/27/24 17:27 Methylergonovine Maleate (Methylergonovine 0.2 Mg Tablet) 0.2 mg PO Q6HR PRN PRN Reason: Excessive bleeding Stop: 11/27/24 17:27 Ondansetron HCl (Ondansetron Inj 2 Mg/Ml Inj 2 Ml) 4 mg IVP Q6HR PRN; Protocol PRN Reason: NAUSEA OR VOMITING Stop: 12/20/24 14:31 Simethicone (Simethicone 80 Mg Chew) 80 mg PO Q4HR PRN PRN Reason: GAS Stop: 12/20/24 17:27 Last Admin: 11/21/24 04:20 Dose: 80 mg Discontinued Medications Citric Acid/Sodium Citrate (Citric Acid/Sodium Citr 15 Ml Udc (Bicitra)) 30 ml PO X1 ONE Stop: 11/20/24 12:46 Last Admin: 11/20/24 13:25 Dose: 30 ml Diphenhydramine HCl (Diphenhydramine Inj 50 Mg/Ml Vial) 12.5 mg IVP Q2H PRN PRN Reason: ITCHING Stop: 11/20/24 16:32 Diphenhydramine HCl (Diphenhydramine 25 Mg Capsule) 25 mg PO X1 ONE Stop: 11/21/24 01:52 Famotidine (Famotidine Inj 10 Mg/Ml Vial 2 Ml) 20 mg IV X1 ONE Stop: 11/20/24 12:46 Last Admin: 11/20/24 13:26 Dose: 20 mg Furosemide (Furosemide Inj 10 Mg/Ml Vial 2 Ml) 20 mg IVP X1 ONE Stop: 11/21/24 01:54 Furosemide (Furosemide Inj 10 Mg/Ml 4ml Vial) 40 mg IVP X1 ONE Stop: 11/21/24 12:20 Lactated Ringer's (Lactated Ringers) 1,000 mls @ 100 mls/hr IV .Q10H ONE Stop: 11/20/24 22:44 Last Admin: 11/20/24 13:30 Dose: 100 mls/hr Cefazolin Sodium (Ancef 2gm Ivpb) 2 gm in 100 mls @ 200 mls/hr IV X1 ONE Stop: 11/20/24 13:14 Last Admin: 11/20/24 13:26 Dose: 200 mls/hr Acetaminophen (Ofirmev Inj) 1,000 mg in 100 mls @ 250 mls/hr IV PRNMRX1 PRN PRN Reason: PAIN SCALE 1-3 (mild Stop: 11/20/24 16:32 Oxytocin/Sodium Chloride (Pitocin 20 Units In Ns) 20 unit in 1,000 mls @ 125 mls/hr IV .Q8H MANUEL Stop: 11/21/24 09:29 Last Admin: 11/20/24 20:32 Dose: 125 mls/hr Lactated Ringer's (Lactated Ringers) 1,000 mls @ 999 mls/hr IV .Q1H1M ONE Stop: 11/21/24 01:53 Last Admin: 11/21/24 00:45 Dose: 999 mls/hr Piperacillin/Tazobactam/Dextrose (Zosyn) 3.375 gm in 50 mls @ 100 mls/hr IV X1 ONE Stop: 11/21/24 10:05 Last Admin: 11/21/24 09:58 Dose: 100 mls/hr Magnesium Sulfate/Dextrose (Magnesium Sulfate Ivpb) 1 gm in 100 mls @ 100 mls/hr IV X1 ONE Stop: 11/21/24 10:36 Last Admin: 11/21/24 11:29 Dose: 100 mls/hr Ketorolac Tromethamine (Ketorolac Inj 30 Mg/Ml Vial) 30 mg IVP Q6H PRN; Protocol PRN Reason: PAIN 1-6 (mild-mod Stop: 11/20/24 16:32 Last Admin: 11/20/24 17:13 Dose: 30 mg Misoprostol (Misoprostol 200 Mcg Tablet) 800 mcg ID X1 ONE Stop: 11/20/24 12:46 Naloxone HCl (Naloxone Inj 0.4 Mg/Ml Vial) 0.08 mg IVP Q1M PRN PRN Reason: RESPIRATORY DEPRESSION Stop: 11/21/24 14:31 Oxytocin (Oxytocin Inj 10 Unit/Ml Vial) 10 unit IM X1 ONE Stop: 11/20/24 12:46 Assessment & Plan Plan Patient is a 23-year-old female with no pertinent past medical history, seen here after , aspiration event during surgery, concern for sepsis secondary to aspiration pneumonia. # Sepsis, likely secondary to aspiration pneumonia # Acute hypoxic respiratory failure 2 days postop, following , nausea vomiting during surgery, likely aspiration, now complaining of pleuritic chest pain and fever. Needs sepsis criteria, tachycardia and tachypnea, heart rate in the 120s and respiratory rate in the 40s. Tmax 100.1 F Patient currently requiring oxygen via nasal cannula, feels he cannot get a deep breath due to pain. CTA was ordered to rule out pulmonary embolism which was negative for PE, did show significant bibasilar pneumonia, likely aspiration pneumonia. Of note, history of sick contact at home, patient's 1-year-old child was diagnosed with pneumonia, 1 day prior to presentation. Initial lactic acid 2.5, later down trended following IV fluid bolus. ? IV Zosyn 4.5 g every 8 hours ? COVID influenza testing ordered ? Follow blood cultures and sputum cultures ? Tylenol for fever, as needed #Concern for pneumoperitoneum CT abdominal pelvis reported as pneumoperitoneum, given history of recent abdominal surgery, correlate clinically if need for general surgery evaluation. Currently patient's abdomen is soft, nondistended, slightly tender at the site of surgery. ? Continue to observe for worsening abdominal distention or tenderness, physical exam negative for rebound tenderness or rigidity. ? Consider general surgery consult if clinically indicated ? IV Zosyn as antibiotic monotherapy to cover for gram-negative and anaerobes # Anemia Likely blood loss anemia following surgery, concern for intra-abdominal hemorrhage, received 3 PRBCs, posttransfusion H&H ordered ? Given patient's hypoxic respiratory failure, and current diagnosis of sepsis, recommend holding off on further blood transfusions unless hemoglobin less than 7 or active hemorrhage noted. ? Posttransfusion H&H ordered #Sinus tachycardia Sinus tachycardia noted on EKG. likely in the setting of sepsis ? Continue maintenance IV fluids #Tachypnea Likely due to pain, patient unable to take a deep breath has rapid shallow breathing, saturating 95% on 2 L oxygen. ?Pain management per primary team, educated patient regarding the need for deep breathing to prevent atelectasis and complications We thank Dr Guerrier for consulting internal medicine team, and allowing us to participate in Ms. Gomez's care. Plan of care discussed with my attending Dr. Bobby Prather PGY3
[2024-11-21] MEDS: PIPER/TAZO 3.375 GM PREMIX 3.375 G/50 ML BAG IV (18:10)
[2024-11-21 21:56] LABS: COVID-19 Antigen (In-House) Negative (Negative)
[2024-11-21 21:59] LABS: Influenza A Ag Negative; Influenza B Ag Negative
[2024-11-22] VITALS (7 sets, daily range): BP systolic 110–128; BP diastolic 73–84; PULSE 90–121; RESP 20–30; TEMP 36.7–36.9; O2SAT 94–96
[2024-11-22] MEDS: Milk Of Magnesia Susp 30 ML UDC PO (01:13)
[2024-11-22] MEDS: SIMETHICONE 80 MG CHEW PO (01:13)
[2024-11-22] MEDS: HYDROcodone/APAP 5/325 TABLET 1 TAB PO (01:13)
[2024-11-22] MEDS: PIPER/TAZO 3.375 GM PREMIX 3.375 G/50 ML BAG IV ×3 (01:18→16:27)
--- NOTE | 2024-11-22 03:02 | PC.NURSE ---
11/21/24 0100 pt was O2 level was between 92-93 Pt was put on 1L o2.
[2024-11-22] MEDS: ACETAMINOPHEN 325 MG TABLET 650 MG PO (05:28)
[2024-11-22 06:39] LABS: Basophils # (Auto) 0.0 Thou/mm3 (0.0-0.2); Basophils % (Auto) 0 % (0-2.5); Eosinophils # (Auto) 0.0 Thou/mm3 (0.0-0.5); Eosinophils % (Auto) 0 % (0-10); Hematocrit 35.3 % (36.0-46.0); Hemoglobin 12.0 g/dL (12.0-16.0); Immature Granulocytes Auto 0.08 Thou/mm3 (0.00-0.00); Lymphocytes # (Auto) 0.7 Thou/mm3 (1.0-4.8); Lymphocytes % (Auto) 4 % (10-50); Mean Corpuscular HGB Conc 34.0 g/dl (31.0-37.0); Mean Corpuscular Hemoglobin 26.1 pg (25.0-35.0); Mean Corpuscular Volume 77 fL (80-100); Monocytes # (Auto) 0.8 Thou/mm3 (0.0-0.8); Monocytes % (Auto) 5 % (0-12); Neutrophils # (Auto) 14.0 Thou/mm3 (1.8-7.7); Neutrophils % (Auto) 90 % (37-80); Nucleated Red Blood Cell # 0.00 Thou/mm3 (0.00-0.00); Nucleated Red Blood Cell % 0 /100 WBC (0); Platelet Count 235 Thou/mm3 (140-440); RDW Standard Deviation 44.2 fL (36.4-46.3); Red Blood Count 4.60 Miln/mm3 (4.00-5.20); White Blood Count 15.5 Thou/mm3 (3.6-11.0)
[2024-11-22 07:29] LABS: Albumin, Serum 3.4 gm/dL (3.5-5.0); Albumin/Globulin Ratio 1.4 (1.2-2.2); Alkaline Phosphatase 101 U/L (46-116); Anion Gap 13 (7-16); Aspartate Amino Transferase 15 U/L (0-34); BUN/Creatinine Ratio 13 Ratio (12-20); Bilirubin,Total 2.0 mg/dL (0.3-1.2); Blood Urea Nitrogen 9 mg/dL (9-23); Calcium 8.8 mg/dL (8.3-10.6); Calcium (Corrected) 9.3 mg/dL (8.5-10.1); Carbon Dioxide 19.9 mMol/L (20.0-31.0); Chloride 108 mMol/L (98-107); Creatinine (Component) 0.7 mg/dL (0.6-1.3); Estimated Creatinine Clearance 139.2 mL/min (>60); Globulin 2.5 gm/dL (2.3-3.5); Glucose 95 mg/dL (74-106); Osmolality,Calculated 279 (275-295); Potassium 3.7 mMol/L (3.4-5.1); Sodium 141 mMol/L (136-145); Total Protein 5.9 gm/dL (5.7-8.2); eGFR > 60 See Note
[2024-11-22 07:31] LABS: Alanine Aminotransferase 7 U/L (10-49)
--- NOTE | 2024-11-22 07:56 | PD.LDPPPRG ---
Subjective Subjective Interval history: Delivery type: postoperative day #2 patient had postoperative sepsis with tachycardia and tachypnea on Zosyn 4.5 g every 8 hours chest imaging ruled out pulmonary embolism status post 3 units of packed RBC medicine pulm managing for pneumonia. Patient doing well this morning. No acute complaints. Ambulating, tolerating p.o. and voiding without difficulty. HTN/Pre-Eclampsia screen: No chest pain, shortness of breath, headache, visual changes, epigastric or right upper quadrant pain. Breast-feeding, lochia diminishing. Bowel: Flatus+/ BM+ Exam Vital Signs Temp Pulse Resp BP Pulse Ox O2 Del Method O2 Flow Rate 98.1 F 118 H 27 H 111/76 95 Nasal Cannula 1.5 11/22/24 03:57 11/22/24 03:57 11/22/24 03:57 11/22/24 03:57 11/22/24 03:57 11/22/24 03:57 11/22/24 03:57 FiO2 100 11/22/24 03:57 Constitutional Constitutional: no acute distress Routine HEENT Exam Head: Present normocephalic and atraumatic Eye: Present EOMI and PERRL ENT: Present mucous membranes moist Routine Neck Exam Neck: Present supple and trachea midline Routine Respiratory Exam Respiratory: Present chest non-tender, lungs clear, normal breath sounds and no resp distress Routine Cardiovascular Exam Cardiovascular: Present RRR Routine Abdominal Exam Abdominal: Present soft and normoactive bowel sounds Routine Extremities Exam Extremities: Present full ROM Routine Skin Exam Skin: Present intact, dry and warm Routine Neurological Exam Neurological: Present alert, oriented X3 and CN II-XII intact Routine Psychiatric Exam Psychiatric: Present normal affect and normal thought process Objective Labs 11/22/24 05:00 11/22/24 05:00 Labs: Laboratory Results - last 24 hr 11/20/24 11/21/24 11/21/24 13:00 08:53 11:58 WBC 10.6 RBC 3.55 L Hgb 9.1 L Hct 27.4 L MCV 77 L MCH 25.6 MCHC 33.2 RDW Std Deviation 43.8 Plt Count 181 Neut % (Auto) 93 H Lymph % (Auto) 3 L [place] % (Auto) 3 Eos % (Auto) 0 Baso % (Auto) 0 Neut # (Auto) 9.8 H Lymph # (Auto) 0.4 L [place] # (Auto) 0.4 Eos # (Auto) 0.0 Baso # (Auto) 0.0 Immature Gran # (Auto) 0.03 H Absolute Nucleated RBC 0.00 Immature Gran % 0 Nucleated RBC % 0 PT 11.4 INR 1.0 APTT 29.3 Sodium 139 Potassium 3.8 Chloride 108 H Carbon Dioxide 18.4 L Anion Gap 13 BUN 8 L Creatinine 0.5 L Estim Creat Clear Calc 194.8 eGFR > 60 BUN/Creatinine Ratio 16 Glucose 75 Calculated Osmolality 274 L Lactic Acid 2.5 H 1.5 Calcium 8.2 L Corrected Calcium 9.1 Phosphorus 4.5 Magnesium 1.3 L Total Bilirubin 1.3 H AST 17 ALT < 7 L Alkaline Phosphatase 83 Total Protein 4.7 L Albumin 2.9 L Globulin 1.8 L Albumin/Globulin Ratio 1.6 Procalcitonin 0.88 H Influenza A (Rapid) Influenza B (Rapid) SARS-CoV-2 Ag (Rapid) Blood Type A Positive Antibody Screen NEGATIVE Crossmatch See Detail Blood Bank Wristband ID Yes Blood Bank Comment FFP Ready 11/21/24 11/22/24 19:30 05:00 WBC 15.5 H D RBC 4.60 Hgb 12.0 D Hct 35.3 L MCV 77 L MCH 26.1 MCHC 34.0 RDW Std Deviation 44.2 Plt Count 235 D Neut % (Auto) 90 H Lymph % (Auto) 4 L [place] % (Auto) 5 Eos % (Auto) 0 Baso % (Auto) 0 Neut # (Auto) 14.0 H Lymph # (Auto) 0.7 L [place] # (Auto) 0.8 Eos # (Auto) 0.0 Baso # (Auto) 0.0 Immature Gran # (Auto) 0.08 H Absolute Nucleated RBC 0.00 Immature Gran % 1 H Nucleated RBC % 0 PT INR APTT Sodium 141 Potassium 3.7 Chloride 108 H Carbon Dioxide 19.9 L Anion Gap 13 BUN 9 Creatinine 0.7 Estim Creat Clear Calc 139.2 eGFR > 60 BUN/Creatinine Ratio 13 Glucose 95 Calculated Osmolality 279 Lactic Acid Calcium 8.8 Corrected Calcium 9.3 Phosphorus Magnesium Total Bilirubin 2.0 H D AST 15 ALT 7 L Alkaline Phosphatase 101 D Total Protein 5.9 Albumin 3.4 L D Globulin 2.5 Albumin/Globulin Ratio 1.4 Procalcitonin Influenza A (Rapid) Negative Influenza B (Rapid) Negative SARS-CoV-2 Ag (Rapid) Negative Blood Type Antibody Screen Crossmatch Blood Bank Wristband ID Blood Bank Comment Assessment & Plan Problem List (1) Previous section: Status: Acute (2) Supervision of high risk in third trimester: Status: Acute (3) Morbid obesity with BMI of 40.0-44.9, adult: Status: Acute (4) Bilateral pneumonia: Status: Acute (5) delivery delivered: Status: Acute Assessment and plan: PPD/POD#2 1. Continue routine care 2. Transition to PO meds. 3. Encourage to ambulate/ breast-feed 4. Anticipate discharge home today. Will monitor oxygen saturations, possible discharge home on p.o. antibiotics 5. Time Spent With Patient Time: Total time spent is greater than 50% in coordination of care (as documented) at patient's floor/unit and/or counseling patient:
--- NOTE | 2024-11-22 07:58 | ESDS_ITS ---
DS: Providers Provider Date of admission: 11/20/24 12:45 Primary care physician: Physician No Primary/Family Admitting Provider: Poornima Juarez MD ([facility]) Attending Provider on Admission: Varun Kwon MD Consults: 11/20/24 17:28 Referral Routine Comment: 11/21/24 12:23 Consult to Adult Hospitalist Urgent Comment: Consulting Provider: Pankaj Rosales Attending Provider on DC: Varun Kwon MD Discharging Provider: Varun Kwon MD DS: Diagnosis Discharge Diagnosis (1) Bilateral pneumonia: Status: Acute (2) Morbid obesity with BMI of 40.0-44.9, adult: Status: Acute (3) Previous section: Status: Acute (4) Supervision of high risk in third trimester: Status: Acute (5) Endometriosis: Status: Acute (6) delivery delivered: Status: Acute Problem List Completed Was Problem List Reviewed/Reconciled?: Yes Summary/Hosp Course Brief History: The patient is a 23-year-old female with no pertinent past medical history currently seen in obstetric floor, patient had a 2 days ago, reportedly had an aspiration event during anesthesia, patient reported having fever and chills, pleuritic chest pain worse with breathing, which started yesterday and has progressively worsened today. Sepsis alert was called yesterday, met sepsis criteria, for tachypnea and tachycardia. Started on nasal cannula oxygen for hypoxia, patient received 1 L IV fluid bolus, given IV Zosyn, blood cultures were obtained. Patient was started on maintenance IV fluids. there was also concern for internal hemorrhage postsurgery, CT abdomen was obtained which shows pneumoperitoneum, in setting of recent surgery. Patient was also noted to have anemia, 3 PRBCs were ordered in total, as hemoglobin did not improve after first PRBC transfusion last night. Of note, patient has been at the bedside reported that they have 1-year-old son had pneumonia 1 day prior to coming to the hospital. Patient denied upper abdominal discomfort, vomiting or diarrhea, endorsed nausea, headache, and pleuritic chest pain. Past medical history: No pertinent past medical history Home medications: Patient reported taking vitamins and iron supplements Past surgical history: C-sections x2 Family history: Positive family history of diabetes mellitus Allergies: NKDA Social history: Denies smoking and drinking or drug abuse. Peripartum Data Delivery Method: Low Transverse Episiotomy Description: None Procedures: Procedures Operation Date: 11/20/24 13:30 Actual Procedure Side Surgeon p in OB Bilateral Poornima Juarez ([facility])MD Time Spent with Patient Time attestation: Total time spent providing and/or coordinating discharge services: Exam Vital Signs Temp Pulse Resp BP Pulse Ox O2 Del Method O2 Flow Rate 98.1 F 118 H 27 H 111/76 95 Nasal Cannula 1.5 11/22/24 03:57 11/22/24 03:57 11/22/24 03:57 11/22/24 03:57 11/22/24 03:57 11/22/24 03:57 11/22/24 03:57 FiO2 100 11/22/24 03:57 Discharge Plan Plan Patient Disposition: HOME (Self Care) Patient condition on transfer: Stable Prescriptions/Referrals Prescriptions/Med Rec: Discontinued hydrocodone-acetaminophen 5-325 mg tablet 1 tab PO Q6H MDD 4 PRN (Reason: pain) Qty: 20 0RF ibuprofen 600 mg tablet 600 mg PO Q6H PRN (Reason: pain) Qty: 30 0RF No Action PNV cmb#95-ferrous fumarate-FA [] 28 mg iron- 800 mcg tablet 1 tab PO QDAY Patient Comments: TAKE 1 TABLET BY MOUTH EVERY DAY Referrals: No Primary/Family,Physician [Primary Care Provider] - Patient/Caregiver Discharge Instructions Education Materials: C Section Dc Print Language: Indonesian Stand Alone Forms: Margarita Award Info., Patient Portal Info Letter Planned Discharge Date 11/22/24
[2024-11-22] MEDS: ENOXAPARIN SOD INJ 40 MG/0.4 ML SYRINGE SC (09:16)
[2024-11-22] MEDS: DOCUSATE SOD 100 MG CAPSULE PO (09:16)
[2024-11-22] MEDS: AZITHROMYCIN 250 MG TABLET 500 MG PO (09:17)
[2024-11-22 09:52] LABS: Bilirubin,Direct 0.4 mg/dL (0.0-0.3); Bilirubin,Indirect 1.6 mg/dL (0.0-1.1); Bilirubin,Total 2.0 mg/dL (0.3-1.2)
[2024-11-22] MEDS: IBUPROFEN TAB 400 MG TABLET 800 MG PO (16:26)
[2024-11-23] MEDS: PIPER/TAZO 3.375 GM PREMIX 3.375 G/50 ML BAG IV ×2 (00:15→08:19)
[2024-11-23] MEDS: IBUPROFEN TAB 400 MG TABLET 800 MG PO (00:26)
[2024-11-23 03:51] VITALS: BP 129/82; PULSE 94; RESP 18; TEMP 36.8; O2SAT 94
--- NOTE | 2024-11-23 06:40 | ESPR_ITS ---
RE: KAROL PRYOR : 2000 DATE OF SERVICE: 11/23/2024 Postop day #3. The patient feels better. She is breathing easier. She has got adequate pain relief. She is voiding, ambulating and tolerating regular diet. She is passing flatus. OBJECTIVE: Vital Signs: Blood pressure 129/82, heart rate 94, respirations 18, temperature is 98.3, pulse ox is 94% on room air. Lungs: Clear to auscultation bilaterally. Heart: Regular rate and rhythm. Abdomen: Nondistended. Skin: Incision clear and intact. Extremities: Nontender. ASSESSMENT: Postoperative day #3, status post delivery. Bilateral pneumonia, on Zosyn, clinically improved. Stable for discharge. PLAN: Discharge home on antibiotics. Follow up in the office in 1 week. Discharge instructions given. DT: 06:23:40 TT: 06:39:00 Ref: [id number] - TID: [id number]
[2024-11-23 08:21] VITALS: BP 117/78; PULSE 80; RESP 18; TEMP 36.7; O2SAT 96
[2024-11-23] MEDS: DOCUSATE SOD 100 MG CAPSULE PO (09:21)
[2024-11-23] MEDS: AZITHROMYCIN 250 MG TABLET 500 MG PO (09:21)
[2024-11-23] MEDS: ENOXAPARIN SOD INJ 40 MG/0.4 ML SYRINGE SC (09:22)
[2024-11-23 09:55] LABS: Basophils # (Auto) 0.0 Thou/mm3 (0.0-0.2); Basophils % (Auto) 0 % (0-2.5); Eosinophils # (Auto) 0.0 Thou/mm3 (0.0-0.5); Eosinophils % (Auto) 0 % (0-10); Hematocrit 32.5 % (36.0-46.0); Hemoglobin 10.9 g/dL (12.0-16.0); Immature Granulocytes Auto 0.08 Thou/mm3 (0.00-0.00); Lymphocytes # (Auto) 0.7 Thou/mm3 (1.0-4.8); Lymphocytes % (Auto) 5 % (10-50); Mean Corpuscular HGB Conc 33.5 g/dl (31.0-37.0); Mean Corpuscular Hemoglobin 26.1 pg (25.0-35.0); Mean Corpuscular Volume 78 fL (80-100); Monocytes # (Auto) 0.6 Thou/mm3 (0.0-0.8); Monocytes % (Auto) 4 % (0-12); Neutrophils # (Auto) 12.8 Thou/mm3 (1.8-7.7); Neutrophils % (Auto) 90 % (37-80); Nucleated Red Blood Cell # 0.00 Thou/mm3 (0.00-0.00); Nucleated Red Blood Cell % 0 /100 WBC (0); Platelet Count 264 Thou/mm3 (140-440); RDW Standard Deviation 45.8 fL (36.4-46.3); Red Blood Count 4.18 Miln/mm3 (4.00-5.20); White Blood Count 14.3 Thou/mm3 (3.6-11.0)
[2024-11-23 10:14] LABS: Anion Gap 12 (7-16); BUN/Creatinine Ratio 17 Ratio (12-20); Blood Urea Nitrogen 15 mg/dL (9-23); Calcium 8.2 mg/dL (8.3-10.6); Carbon Dioxide 22.6 mMol/L (20.0-31.0); Chloride 107 mMol/L (98-107); Creatinine (Component) 0.9 mg/dL (0.6-1.3); Estimated Creatinine Clearance 108.2 mL/min (>60); Glucose 78 mg/dL (74-106); Osmolality,Calculated 282 (275-295); Potassium 3.5 mMol/L (3.4-5.1); Sodium 142 mMol/L (136-145); eGFR > 60 See Note
--- NOTE | 2024-11-23 16:49 | ESPR_ITS ---
<Statement entered by Pankaj Rosales MD - 12/05/24 14:14> I reviewed above note and agree with findings and plans. I have also personally examined the patient with medicine team and went over assessment and plan with medical team including internist medical doctor md and resident physician. Documentation for date of: 11/23/24 Subjective Subjective Interval history: Patient evaluated bedside, asymptomatic, no fever overnight, tachypnea and tachycardia improved, saturating well on room air. The patient is vitally stable, ambulatory, tolerating p.o. medications and she can be discharged from medical standpoint, on p.o. antibiotics Augmentin 875 mg twice daily for 4 more days. Internal medicine team would sign off from the care of Ms. Gomez. Exam Vital Signs Temp Pulse Resp BP Pulse Ox O2 Del Method O2 Flow Rate 98.0 F 80 18 117/78 96 Room Air 1 11/23/24 08:21 11/23/24 08:21 11/23/24 08:21 11/23/24 08:21 11/23/24 08:21 11/23/24 08:21 11/22/24 11:30 FiO2 100 11/22/24 11:30 Narrative Exam General: AOx3, cooperative, saturating well on room air Skin: Intact, no cyanosis or edema noted. HEENT: Atraumatic/normocephalic, CECILIA, neck supple Heart: RRR, S1 and S2 without clicks or murmurs Lungs: Mild basilar rhonchi no difficulty breathing Abdomen: Soft, mildy distended and tender post surgery. Bowel sounds present . Vascular: Peripheral pulses palpable Neuro: No focal neurological deficits noted. Objective Labs 11/23/24 08:35 11/23/24 08:35 Labs: Laboratory Results - last 24 hr 11/20/24 11/23/24 13:00 08:35 WBC 14.3 H RBC 4.18 Hgb 10.9 L Hct 32.5 L MCV 78 L MCH 26.1 MCHC 33.5 RDW Std Deviation 45.8 Plt Count 264 Neut % (Auto) 90 H Lymph % (Auto) 5 L [place] % (Auto) 4 Eos % (Auto) 0 Baso % (Auto) 0 Neut # (Auto) 12.8 H Lymph # (Auto) 0.7 L [place] # (Auto) 0.6 Eos # (Auto) 0.0 Baso # (Auto) 0.0 Immature Gran # (Auto) 0.08 H Absolute Nucleated RBC 0.00 Immature Gran % 1 H Nucleated RBC % 0 Sodium 142 Potassium 3.5 Chloride 107 Carbon Dioxide 22.6 Anion Gap 12 BUN 15 Creatinine 0.9 Estim Creat Clear Calc 108.2 eGFR > 60 BUN/Creatinine Ratio 17 Glucose 78 Calculated Osmolality 282 Calcium 8.2 L Crossmatch See Detail Quality Measures Quality Measures VTE prophylaxis Assessment & Plan Assessment Current Active Medications: Generic Name Dose Route Start Last Admin Trade Name Freq PRN Reason Stop Dose Admin Acetaminophen 325 mg 11/20/24 17:28 Acetaminophen 325 Mg Tablet PO 12/20/24 17:27 Q4HR PRN Patient rated pain 1 to 2 Acetaminophen 650 mg 11/20/24 17:28 11/22/24 05:28 Acetaminophen 325 Mg Tablet PO 12/20/24 17:27 650 mg Q6HR PRN Administration Patient rated pain of 3 Hydrocodone Bitart/Acetaminophen 1 tab 11/20/24 17:28 11/22/24 01:13 Hydrocodone/Apap 5/325 Tablet PO 11/25/24 17:27 1 tab Q4HR PRN Administration Patient rated pain 7 to 8 Hydrocodone Bitart/Acetaminophen 2 tab 11/20/24 17:28 Hydrocodone/Apap 5/325 Tablet PO 11/25/24 17:27 Q6HR PRN Patient rated pain 9 to 10 Azithromycin 500 mg 11/22/24 09:00 11/23/24 09:21 Azithromycin 250 Mg Tablet PO 11/29/24 08:59 500 mg QDAY MANUEL Administration Carboprost Tromethamine 250 mcg 11/20/24 12:45 Carboprost Trometh Inj 250 Mcg/Ml Vial IM X1 PRN BLEEDING Diphtheria/Tetanus/Acell Pertussis 0.5 ml 11/20/24 17:28 Diphth,Pertuss(Acell),Tet Vac 0.5 Ml Syr- Adult IMi X1 PRN SEE COMMENTS Docusate Sodium 100 mg 11/21/24 09:00 11/23/24 09:21 Docusate Sod 100 Mg Capsule PO 12/21/24 08:59 100 mg QDAY MANUEL Administration Enoxaparin Sodium 40 mg 11/21/24 09:00 11/23/24 09:22 Enoxaparin Sod Inj 40 Mg/0.4 Ml Syringe SC 12/05/24 08:59 40 mg QDAY MANUEL Administration Tranexamic Acid 1,000 mg in 100 mls @ 200 mls/hr 11/20/24 12:45 Tranexamic Acid Ivpb IV [id number] PRN BLEEDING Lactated Ringer's 1,000 mls @ 100 mls/hr 11/21/24 09:30 11/21/24 05:03 Lactated Ringers IV 12/21/24 09:29 100 mls/hr .Q10H MANUEL Administration Piperacillin/Tazobactam/Dextrose 3.375 g in 50 mls @ 12.5 mls/hr 11/21/24 17:04 11/23/24 08:19 Zosyn IV 11/28/24 16:59 12.5 mls/hr Q8H MANUEL Administration Ibuprofen 800 mg 11/20/24 17:28 11/23/24 00:26 Ibuprofen Tab 400 Mg Tablet PO 12/20/24 17:27 800 mg Q8HR PRN Administration PAIN SCALE 4-6 (Moderate Magnesium Hydroxide 30 ml 11/20/24 17:28 11/22/24 01:13 Milk Of Magnesia Susp 30 Ml Udc PO 12/20/24 17:27 30 ml [id number] PRN Administration CONSTIPATION Measles/Mumps/Rubella Vaccine Live 0.5 ml 11/20/24 17:28 Measles, Mumps & Rubella Vacc 0.5 Ml Vial SCi X1 PRN if non-immune or equivocal Methylergonovine Maleate 0.2 mg 11/20/24 12:45 Methylergonovine Inj 0.2 Mg/Ml Vial IM X1 PRN BLEEDING Methylergonovine Maleate 0.2 mg 11/20/24 17:28 Methylergonovine Inj 0.2 Mg/Ml Vial IM 11/27/24 17:27 Q6HR PRN Excessive bleeding Methylergonovine Maleate 0.2 mg 11/20/24 17:28 Methylergonovine 0.2 Mg Tablet PO 11/27/24 17:27 Q6HR PRN Excessive bleeding Ondansetron HCl 4 mg 11/20/24 14:32 Ondansetron Inj 2 Mg/Ml Inj 2 Ml IVP 12/20/24 14:31 Q6HR PRN NAUSEA OR VOMITING Protocol Pantoprazole Sodium 40 mg 11/22/24 09:15 11/23/24 10:55 Pantoprazole Inj 40 Mg Vial IVP 12/22/24 09:14 40 mg QDAY MANUEL Administration Simethicone 80 mg 11/20/24 17:28 11/22/24 01:13 Simethicone 80 Mg Chew PO 12/20/24 17:27 80 mg Q4HR PRN Administration GAS Plan Patient is a 23-year-old female with no pertinent past medical history, seen here after , aspiration event during surgery, concern for sepsis secondary to aspiration pneumonia. # Sepsis, #Aspiration pneumonia # Acute hypoxic respiratory failure?now resolved 2 days postop, following , nausea vomiting during surgery, likely aspiration, now complaining of pleuritic chest pain and fever. Needs sepsis criteria, tachycardia and tachypnea, heart rate in the 120s and respiratory rate in the 40s. Tmax 100.1 F Patient currently requiring oxygen via nasal cannula, feels he cannot get a deep breath due to pain. CTA was ordered to rule out pulmonary embolism which was negative for PE, did show significant bibasilar pneumonia, likely aspiration pneumonia. Of note, history of sick contact at home, patient's 1-year-old child was diagnosed with pneumonia, 1 day prior to presentation. Initial lactic acid 2.5, later down trended following IV fluid bolus. ? IV Zosyn 4.5 g every 8 hours ? COVID influenza testing negative ? Follow blood cultures and sputum negative to date ? Tylenol for fever, as needed ? Patient can be discharged on p.o. antibiotics Augmentin 870 mg twice daily to be continued for 4 more days. #Concern for pneumoperitoneum? CT abdominal pelvis reported as pneumoperitoneum, given history of recent abdominal surgery, correlate clinically if need for general surgery evaluation. Currently patient's abdomen is soft, nondistended, slightly tender at the site of surgery. ? Continue to observe for worsening abdominal distention or tenderness, physical exam negative for rebound tenderness or rigidity. ? Consider general surgery consult if clinically indicated ? IV Zosyn as antibiotic monotherapy to cover for gram-negative and anaerobes # Anemia?improved Likely blood loss anemia following surgery, concern for intra-abdominal hemorrhage, received 3 PRBCs, posttransfusion H&H ordered ? Given patient's hypoxic respiratory failure, and current diagnosis of sepsis, recommend holding off on further blood transfusions unless hemoglobin less than 7 or active hemorrhage noted. ? Hemoglobin improved with transfusion, recommend follow-up with PCP with CBC and iron studies within 2 to 4 weeks. #Sinus tachycardia?resolving Sinus tachycardia noted on EKG. likely in the setting of sepsis ? Continue maintenance IV fluids #Tachypnea resolved Currently on room air ?Pain management per primary team, educated patient regarding the need for deep breathing to prevent atelectasis and complications Patient evaluated bedside, asymptomatic, no fever overnight, tachypnea and tachycardia improved, saturating well on room air. The patient is vitally stable, ambulatory, tolerating p.o. medications and she can be discharged from medical standpoint, on p.o. antibiotics Augmentin 875 mg twice daily for 4 more days. Hemoglobin improved with transfusion, recommend follow-up with PCP with CBC and iron studies within 2 to 4 weeks. Internal medicine team would sign off from the care of Ms. Gomez. We thank Dr Guerrier for consulting internal medicine team, and allowing us to participate in Ms. Gomez's care. Plan of care discussed with attending Dr. Bobby Prather PGY 3
== END 2024-11-23 16:50 | disposition home or self-care (01) | DRG 540 ==
LOC: S4SX 14:03 → S4NX 14:05
PROVIDERS: Specialist; Student in an Organized Health Care Education/Training Program; Admitting Provider Obstetrics & Gynecology; Visit Provider Obstetrics & Gynecology
PROC: 10D00Z1 Extraction of Products of Conception, Low, Open Approach (ICD-10-PCS; CPT 59514; principal; 2024-11-20 13:15)
DX: O34.211 Maternal care for low transverse scar from previous cesarean delivery (principal); Z37.0 Single live birth; Z3A.38 38 weeks gestation of pregnancy; A41.9 Sepsis, unspecified organism; O99.214 Obesity complicating childbirth; E66.01 Morbid (severe) obesity due to excess calories; O99.52 Diseases of the respiratory system complicating childbirth; J18.9 Pneumonia, unspecified organism; J96.01 Acute respiratory failure with hypoxia; O99.02 Anemia complicating childbirth; D64.9 Anemia, unspecified; O86.04 Sepsis following an obstetrical procedure; J69.0 Pneumonitis due to inhalation of food and vomit; N80.9 Endometriosis, unspecified
CPT/HCPCS: 36415; 71045; 71275; 74177; 80048; 80053; 81001; 82247; 82248; 83605; 83735; 84100; 84145; 85014; 85018; 85025; 85610; 85730; 86780; 86850; 86900; 86901; 86923; 86927; 87040; 87086; 87502; 87811; 93005; A4314; A4649; J0689; J1650; J1885; J2274; J2371; J2470; J2543; J2590; J3475; J3490; J7120; P9016; Q9967; A9270; J2270